=== PATIENT | female | born 1945 | race African-American/Black ===

== ENCOUNTER → 2016-04-13 | Outpatient (CLI) | payer MEDICARE, BC ==
[~2016-04-13] MED LIST: ACET1TAB30 PO; ASPI-482 PO; ATOR20TA PO; CALC500T50 PO; CHOL100013 PO; DILT360C PO; FURO-69 PO; GABA-586 PO; HYDR-2161 PO; HYDR-2666 PO; IOHEXOL 180 MG/ML 10 ML VIAL. ONE; LOSA1TAB18 PO; MELO-150 PO; MELO-156 PO; OMEG300C PO; POTA10TA PO; UBID30CA9 PO; methylPREDNISolone ACETATE 40 MG/ML VIAL. ONE; methylPREDNISolone ACETATE 80 MG/ML VIAL. ONE
--- NOTE | 2016-04-14 08:49 | PAIN ---
DATE OF SERVICE: 04/13/2016 INITIAL CONSULTATION FOR PAIN CLINIC CHIEF COMPLAINT: Low back and right lower extremity pain. HISTORY OF PRESENT ILLNESS: This is a 71-year-old female who presents with history of pain in the low back and right lower extremity for about a year or so. The patient reports the pain is getting worse, it has been present for longer than that, but much worse over the last year. The patient reports pain in the low back, right lower extremity, mostly in the posterior and lateral thigh, posterior gluteus, anterior thigh, medial and posterior lower leg with pain radiating into the foot at times, but mostly in the leg itself on the right side, some in the groin as well. The patient had been evaluated with her orthopedist as she does have some osteoarthritis in the right hip. This was investigated and had a steroid shot in the hip by her report, which did not help the pain. The patient did have an MRI scan of the lumbar spine showing multilevel lumbar spondylosis, most prominent at L5-S1 with mild diffuse disk bulge at L5-S1 with severe right and moderate left facet arthrosis, right foraminal disk protrusion effacing the exiting right L5 nerve root, resulting in severe right neural foraminal stenosis, also left foraminal disk protrusion which effaces the undersurface of the exiting left L5 nerve root ____ moderate to severe left neural foraminal compromise and stenosis. The patient reports the pain is constant, is throbbing, radiating, aching, ____ specific injury or action that she is aware, but it gradually increased over time. The patient reports it wakens her from sleep at least once or twice at night, does not affect her bowel or bladder control, but does affect her ability to walk. She is not using any assistive devices; however, but she is holding on to her or the handrails and doors and solares when she is ambulating because of the pain in the right leg. The patient reports no motor loss of the right lower extremity, but significant fatigability with even walking about 5-10 minutes. The patient rates her disability rate from 0 to 10, 10 being the worst, is at 9 with family and home responsibilities, recreation, occupation, 8 with social activities, 6 with sexual behavior, 7 with self-care and 0 with life support activities. The patient has been taking hydrocodone as well as Meloxicam, both of which helped by about 20%-25%. She also had physical therapy recently at [facility] and this helped by about 20% as well. PAST MEDICAL HISTORY: Significant for hypertension, gastroesophageal reflux, and arthritis. PREVIOUS SURGERY: Include hysterectomy, but the patient has been in good health. CURRENT MEDICATIONS: Include fish oil, vitamin D, K-Dur, Cardizem, furosemide, Lipitor, Meloxicam, gabapentin, losartan, daily baby aspirin, gabapentin and hydrocodone. ALLERGIES: THE PATIENT IS ALLERGIC TO SHRIMP AND NEOSPORIN. SOCIAL HISTORY: The patient does not drink, does not smoke. She is , lives with her spouse, is retired and lives locally in [place], [place]. FAMILY HISTORY: Significant for high blood pressure and heart disease. REVIEW OF SYSTEMS: The patient's review of systems is positive for those items mentioned in history of present illness. All systems were reviewed and otherwise negative. It is complete, full and well documented on the patient's chart. PHYSICAL EXAMINATION: VITAL SIGNS: The patient's blood pressure is 140/91, pulse 65, respirations 18, temperature 98.9 degrees Fahrenheit, height 5 feet 3 inches, and weight 198 pounds. GENERAL: The patient is awake, alert, oriented, appropriate, very pleasant demeanor. HEENT: Head shows normocephalic, atraumatic. Extraocular movements are intact and symmetrical. Oral cavity shows mucous membranes are moist and pink. Dentition is intact. NECK: Shows anterior throat supple without palpable lymphadenopathy noted. Swallow reflex is symmetrical. Neck shows full rotational motion of the cervical spine without difficulty or tenderness including extension and flexion greater than 45 degrees, right and left lateral rotation. CHEST: Shows normal on inspection. Breath sounds are clear to auscultation bilaterally. HEART: Shows S1 and S2. No murmurs are auscultated. ABDOMEN: Soft, nontender, and nondistended. No palpable organomegaly is noted. No rebound or guarding demonstrated. Abdomen is normal on inspection. BACK: Shows spine grossly midline. Normal appearing cervical lordotic curvature, thoracic kyphotic curvature, and lumbar lordotic curvature. No previous bruises, lesions, rashes or scars are noted with lumbar paraspinous musculature, on inspection shows symmetrical without evidence of atrophy or hypertrophy with palpation, it is moderately to significantly tender in the low lumbar distribution, more on the right than the left, but is symmetrical, some diffuse tenderness in the middle upper distribution of the lumbar paraspinous musculature as well again, but without atrophy or hypertrophy. No tenderness over the spinous processes themselves. No tenderness over the sacrum and sacroiliac regions. The patient shows good rotation and motion of the lumbar spine, both laterally greater than 10 degrees right and left as well as extension greater than 10 degrees, forward flexion of 45 degrees without significant pain reported. Lower extremities show deep tendon reflexes at 2+ in the patellar, 1+ tendo-calcaneus tendons are equal. Motor exam is approximately 4 on a scale of 5 with right dorsiflexion and extension and 5/5 on the left. Quadriceps and hamstring flexion is 5/5 and equal bilaterally. Peripheral pulses are 1+ posterior tibial and dorsalis pedis pulses. No peripheral edema is noted. No clubbing, no cyanosis. Lower extremities are warm and dry to touch, equal in color and appearance. Straight leg raise noted to be positive on the right at about 40-45 degrees and decreased with knee flexion, left side is negative. Gaenslen's and Gage's maneuvers are negative for reproduction of pain bilaterally as well. The patient is able to stand. It is difficult to try to stand on her toes or put off her weight on her right leg as it does hurt in the posterior gluteus and lateral thigh, and she is walking with a slight shuffling gait. It appears to favor the right lower extremity to a significant extent not using any assistive devices such as canes or walkers to ambulate. IMPRESSION: 1. This is a 71-year-old female with about 1 year history of increasing pain in low back, right lower extremity in a radicular fashion, as noted. 2. MRI scan, as noted. 3. History of hypertension. 4. Arthritis. PLAN: Options were discussed with the patient including conservative medical management, physical therapy, interventional techniques and she would like to pursue interventional techniques. We discussed lumbar epidural steroid injection using description as well as anatomical models to describe the procedure. Risks were then discussed including, but not limited to bleeding, infection, possibility of epidural hematoma, subsequent neurologic compromise, dural puncture, headaches, spinal cord and/or nerve damage, side effects of steroid medication and poor results regarding pain control. The patient understands and wishes to proceed. The patient will return to clinic in approximately 2 weeks for followup. She was counseled as to return appointment, activity level and side effects to be aware of. DIAGNOSES: Lumbar radiculopathy with lumbar degenerative disk disease and lumbar herniated disk. PROCEDURES: Lumbar epidural steroid injection, translaminar approach at the L5-S1 level using C-arm fluoroscopic-guidance under sterile prep and drape using local anesthetic. MEDICATION INJECTED: Depo-Medrol plus 120 mg plus 10 mL of preservative-free normal saline and 2 mL of Isovue for contrast. CONDITION AT DISCHARGE: Stable. The patient tolerated procedure well, had no complications. ALEKSANDRA SHARP MD DR: PAO/mustapha JOB#: [id number] / [id number] PANKAJ Torres MD
== END | disposition home or self-care (01) ==
LOC: PNCL 10:24
PROVIDERS: ATTEND Anesthesiology
DX: M51.16 Intervertebral disc disorders with radiculopathy, lumbar region (principal); I10 Essential (primary) hypertension; K21.9 Gastro-esophageal reflux disease without esophagitis; M19.90 Unspecified osteoarthritis, unspecified site
CPT/HCPCS: 62323; J1030; J1040

== ENCOUNTER → 2016-04-27 | Outpatient (CLI) | payer MEDICARE, BC ==
--- NOTE | 2016-04-28 05:47 | PAIN ---
DATE OF SERVICE: 04/27/2016 DIAGNOSES: Lumbar radiculopathy with lumbar degenerative disk disease and herniated lumbar disk. HISTORY OF PRESENT ILLNESS: The patient is a 71-year-old female who returns for followup status post lumbar epidural steroid injection x 1. The patient reports about 60% improvement after last injection with much less pain in the low back and right leg, but still some present as aching pain in the low back, much better in the lower extremity on the right side. The patient reports it is still 5-6 on a scale of 10, is worse, aching and dull, worse with standing and walking, worse with ambulating and changing positions. She is sleeping much better at night, increased her activity with greater ease and comfort without significant changes with activity. The patient reports no new motor or sensory deficits, no new bowel or bladder incontinence or other complaints. PHYSICAL EXAMINATION: VITAL SIGNS: Today, the patient's blood pressure 131/88, pulse 59, respirations 18, temperature 98.9 degrees Fahrenheit, weight is 199 pounds. GENERAL: The patient is awake, alert, oriented, appropriate, very pleasant demeanor. HEENT: Head shows normocephalic, atraumatic. Extraocular movements are intact and symmetrical. The patient wears eye glasses. Oral cavity, mucous membranes moist and pink. NECK: Shows anterior throat supple without palpable lymphadenopathy noted. Swallow reflex is symmetrical. CHEST: Shows normal on inspection. Breath sounds are clear to auscultation bilaterally. HEART: Shows S1 and S2 clear. No murmurs auscultated. ABDOMEN: Soft, nontender and nondistended. No palpable organomegaly. No rebound or guarding demonstrated. BACK: Shows spine grossly midline. Lumbar paraspinous muscle shows some mild tenderness to palpation, but is symmetrical on inspection, notes no radiation of pain with palpation. No atrophy or hypertrophy. The patient shows good rotation and motion of the lumbar spine, both laterally as well as extension and flexion. EXTREMITIES: The patient's lower extremities show deep tendon reflexes at 2+ in the patellar, 1+ tendo calcaneus tendons. Motor exam is approximately 4 on a scale of 5 with right dorsiflexion and extension about 5/5 on the left. Options were discussed with the patient at this time, the patient's old chart was reviewed as her current medication regimen updated. Current review of systems updated today as well. We will proceed with a second lumbar epidural steroid injection today with fluoroscopic guidance. Risks were again discussed including, but not limited to bleeding, infection, possibility of epidural hematoma, subsequent neurologic compromise, dural puncture, headaches, spinal cord and/or nerve damage, side effects of steroid medication and poor results regarding pain control. The patient understands and wishes to proceed. The patient will return to clinic in approximately 2 weeks for followup, was counseled on return appointment, activity level and side effects to be aware of. DIAGNOSIS: Lumbar radiculopathy with lumbar degenerative disk disease and lumbar herniated disk. PROCEDURE: Lumbar epidural steroid injection in translaminar approach at the L5-S1 level using the C-arm fluoroscopic guidance under sterile prep and drape and local anesthetic. Medications injected 120 mg Depo-Medrol plus 10 mL of preservative-free normal saline and 2 mL of Isovue for contrast. Condition at discharge is stable. The patient tolerated procedure well, had no complications. ALEKSANDRA SHARP MD DR: PAO/nts JOB#: [id number] / [id number]
== END | disposition home or self-care (01) ==
LOC: PNCL 10:32
PROVIDERS: ATTEND Anesthesiology
DX: M51.16 Intervertebral disc disorders with radiculopathy, lumbar region (principal)
CPT/HCPCS: 62323; J1030; J1040

== ENCOUNTER → 2016-06-03 | Outpatient (CLI) | payer MEDICARE, BC ==
--- NOTE | 2016-06-03 16:36 | PAIN ---
DATE OF SERVICE: 06/03/2016 DIAGNOSIS: Lumbar radiculopathy with lumbar degenerative disk disease and lumbar herniated disk. HISTORY OF PRESENT ILLNESS: The patient is a 71-year-old female who returns for followup status post lumbar epidural steroid injections x 2, last seen on 04/27/2016. Patient did very well with about 80% improvement overall. The pain is in her low back and bilateral lower extremities, right greater than left. The patient reports still pain in the back, pain in the right posterior gluteus, posterior thigh and lower leg, but much improved. The patient reports still achy alternating with a sharp pain that is becoming more constant, rates as 8 on a scale of 10, it is worse with activity, standing and walking, better with lying down or sitting, does not awaken her from sleep at night any more, getting much better with rest, has been able to increase her activity with greater ease and comfort for the most part. Patient reports no new motor or sensory deficits, no new bowel or bladder incontinence or other complaints. PHYSICAL EXAMINATION: VITAL SIGNS: Today, blood pressure is 147/91, pulse 73, respirations 20, temperature 98.9 degrees Fahrenheit. Height is 5 feet 3 inches, weight 199 pounds. GENERAL: The patient is awake, alert, oriented, appropriate, very pleasant demeanor. HEENT: Head shows normocephalic, atraumatic. Extraocular movements are intact and symmetrical. Oral cavity, mucous membranes are moist and pink. Dentition is intact. NECK: Shows anterior throat supple without palpable lymphadenopathy noted. Swallow reflex is symmetrical. CHEST: Shows normal on inspection. Breath sounds are clear to auscultation bilaterally. HEART: Shows S1 and S2 clear. No murmurs auscultated. ABDOMEN: Soft, nontender, nondistended. No palpable organomegaly noted. No rebound or guarding demonstrated. BACK: Shows spine grossly midline. Lumbar paraspinous muscle shows some mild tenderness with palpation, but only diffusely in the lower lumbar distribution, but symmetrical without evidence of atrophy, hypertrophy, no trigger points, no radiation of pain. The patient shows good rotational motion of lumbar spine, both laterally as well as extension and flexion without difficulty. EXTREMITIES: Lower extremities showed deep tendon reflexes at 2+ in the patellar tendons and 1+ tendo calcaneus tendons. Motor exam is approximately 4 on a scale of 5 with right dorsiflexion and extension and 5/5 with left. Options were discussed with the patient and the patient's old chart was reviewed as her current medication regimen updated. Current review of systems updated today as well and we will proceed with a third in a series of lumbar epidural steroid injection with fluoroscopic guidance. Risks were again discussed including, but not limited to bleeding, infection, possibility of epidural hematoma, subsequent neurological compromise, dural puncture, headaches, spinal cord and/or nerve damage, side effects of steroid medication and poor results regarding pain control. The patient understands and wishes to proceed. The patient will return to clinic in approximately 2 weeks for followup. She was counseled as to return appointment, activity level and side effects to be aware of. DIAGNOSIS: Lumbar radiculopathy with lumbar degenerative disk disease and lumbar herniated disk. PROCEDURE: Lumbar epidural steroid injection in translaminar approach at L5-S1 level using C-arm fluoroscopic guidance under sterile prep and drape using local anesthetic. MEDICATION INJECTED: Depo-Medrol 120 mg plus 10 mL preservative-free normal saline and 2 mL for Isovue contrast. CONDITION AT DISCHARGE: stable. The patient tolerated procedure well, had no complications. ALEKSANDRA SHARP MD DR: PAO/mustapha JOB#: [id number] / [id number]
== END | disposition home or self-care (01) ==
LOC: PNCL 07:54
PROVIDERS: ATTEND Anesthesiology
DX: M51.16 Intervertebral disc disorders with radiculopathy, lumbar region (principal)
CPT/HCPCS: 62323; J1030; J1040

== ENCOUNTER → 2016-10-06 | Outpatient (CLI) | payer MEDICARE, BC ==
[~2016-10-06] MED LIST changes: -CALC500T50 PO; +CALC500T54 PO; -HYDR-2666 PO; +HYDR-2758 PO; -MELO-150 PO; -MELO-156 PO; +MELO15TA23 PO; +MELO7.5T29 PO
--- NOTE | 2016-10-06 12:48 | RAD ---
Indication chronic knee pain. AP oblique and lateral views of both knees were obtained. Views of the left knee demonstrate normal bony mineralization. There is some very mild medial joint space compartment narrowing. Small osteophytes are seen medially. No acute finding is seen. Views of the right knee also suggests very slight medial joint space compartment narrowing. There is probable tendinous calcification associated with the patella. No acute finding is apparent. IMPRESSION: Slight degenerative change involving both knees
--- NOTE | 2016-10-06 23:42 | PAIN ---
DATE OF SERVICE: 10/06/2016 PROGRESS NOTE FOR PAIN CLINIC DIAGNOSES: Lumbar radiculopathy with lumbar degenerative disk disease and lumbar herniated disk. HISTORY OF PRESENT ILLNESS: The patient is a 71-year-old female who returns for followup, last seen in 05/2016. The patient underwent lumbar epidural steroid injection at that time with very good results about 60% improvement overall. The patient reports the pain is beginning to return now over the past 5-6 weeks, increasing in the low back and mostly in the right lower extremity greater than the left. The patient reports some radiating pain into the posterior gluteus, posterior thigh on the right side as well as into the groin occasionally, but mostly in the thigh and to the lower leg occasionally as well. The patient reports it is achy and dull, becoming more constant, rates at a 9 on a scale 10 at all times including on her visit today. The patient reports it awakens her from sleep. She has to reposition, take pain medication, get out of bed and then get back in bed and reposition, but sleeping about 6-7 hours at a time. The patient reports no new motor or sensory deficits, no new bowel or bladder incontinence, but it is hard to put pressure on her right leg. She is having difficulty walking and significant fatigability with the right leg as well with ambulation. PAST MEDICAL HISTORY: Significant for hypertension, arthritis, gastroesophageal reflux and previous hysterectomy. CURRENT MEDICATIONS: Updated and include hydrocodone, Lasix, calcium, coenzyme Q12, fish oil, vitamin D, daily baby aspirin, meloxicam, losartan, diltiazem and Lipitor. ALLERGIES: THE PATIENT IS ALLERGIC TO NEOSPORIN AND SEAFOOD. FAMILY HISTORY: Significant for high blood pressure and heart disease. SOCIAL HISTORY: The patient does not drink alcohol, does not use tobacco products, is , lives with her spouse, is retired and lives locally in [place], [place]. REVIEW OF SYSTEMS: The patient's review of systems is updated on the patient's chart. All systems reviewed and are negative unless otherwise noted. PHYSICAL EXAMINATION: VITAL SIGNS: Today, the patient's blood pressure is 155/105, pulse 81, respirations are 18, temperature 98.4 degrees Fahrenheit. Height is 5 feet 3 inches, weighs 195 pounds. GENERAL: The patient is awake, alert, oriented, appropriate, very pleasant demeanor. HEENT: Head shows normocephalic, atraumatic. Extraocular movements are intact, symmetrical. Oral cavity: Mucous membranes moist and pink. Dentition is intact. NECK: Shows anterior throat is supple without palpable lymphadenopathy noted. Swallow reflex is symmetrical. CHEST: Shows normal on inspection. Breath sounds are clear to auscultation bilaterally. HEART: Shows S1 and S2 clear. ABDOMEN: Soft, nontender, nondistended. No palpable organomegaly. No rebound or guarding demonstrated. BACK: Shows spine grossly in the midline. Normal appearing thoracic kyphosis and some slight flattening of lumbar lordotic curvature. Lumbar paraspinous musculature is symmetrical on inspection and on palpation shows some moderate tenderness with palpation, but only to a moderate extent in the lower lumbar distribution bilaterally without radiation. Good rotational motion both laterally as well as extension and flexion without difficulty. No tenderness over the sacrum or sacroiliac regions. EXTREMITIES: Lower extremities show deep tendon reflexes at 2+ in the patellar, 1+ in calcaneus tendons are equal. Motor exam shows approximately 4 on a scale of 5 right dorsiflexion and extension and 5/5 on the left. Quadriceps and hamstring flexion are 5/5 and equal and symmetrical. Peripheral pulses are 1+ posterior tibial and dorsalis pedis pulses. No peripheral edema is noted. Options were discussed with the patient and the patient's old chart was reviewed as her current medication regimen updated. Current review of systems updated today as noted. We will proceed with a lumbar epidural steroid injection as the first in the series with fluoroscopic guidance. Risks were again discussed including, but not limited to, bleeding, infection, possibility of epidural hematoma, subsequent neurologic compromise, dural puncture, headaches, spinal cord and/or nerve damage, side effects of steroid medication and poor results regarding pain control. The patient understands and wishes to proceed. The patient will return to the clinic in approximately 2 weeks for followup, was counseled on return appointment, activity level and side effects to be aware of. DIAGNOSIS: Lumbar radiculopathy with lumbar herniated disk and lumbar degenerative disk disease. PROCEDURE: Lumbar epidural steroid injection in translaminar approach at L5-S1 level using C-arm fluoroscopic guidance under sterile prep and drape using local anesthetic. MEDICATIONS INJECTED: A 120 mg of Depo-Medrol plus 10 mL of preservative-free normal saline and 2 mL of Isovue for contrast. CONDITION AT DISCHARGE: Stable. The patient tolerated the procedure well and had no complications. ALEKSANDRA SHARP MD DR: PAO/mustapha JOB#: [id number] / [id number]
== END | disposition home or self-care (01) ==
LOC: PNCL 11:01
PROVIDERS: ATTEND Anesthesiology
DX: M51.16 Intervertebral disc disorders with radiculopathy, lumbar region (principal); I10 Essential (primary) hypertension; M19.90 Unspecified osteoarthritis, unspecified site; K21.9 Gastro-esophageal reflux disease without esophagitis; Z79.82 Long term (current) use of aspirin; Z88.8 Allergy status to other drugs, medicaments and biological substances; Z88.1 Allergy status to other antibiotic agents; Z91.013 Allergy to seafood
CPT/HCPCS: 62323; 73562; J1030; J1040

== ENCOUNTER → 2016-10-20 | Outpatient (CLI) | payer MEDICARE, BC ==
--- NOTE | 2016-10-20 19:38 | PAIN ---
DATE OF SERVICE: 10/20/2016 DIAGNOSIS: Lumbar radiculopathy with lumbar herniated disk, lumbar degenerative disease. SUBJECTIVE: The patient is a 71-year-old female who returns for followup status post lumbar epidural steroid injections x 1. The patient reports about 80% improvement in the low back and right lower extremity pain. She was having the pain is much reduced in the legs, still some pain in the low back, right hip, occasionally radiating to the right thigh. She reports as a stabbing and dull pain. It is on and off. The patient reports at its worse is 8 on a scale of 10, least is a 6 and its average about 7 and 6 on a scale of 10 today. The patient reports that her symptoms much better with lying down. She ____ not awaking her from sleep. Reports no new motor or sensory deficits. No new bowel or bladder incontinence or other complaints. PHYSICAL EXAMINATION: VITAL SIGNS: The patient's blood pressure 138/89, pulse 77, respirations are 16, temperature is 98.5 degrees Fahrenheit, height is 5 feet 3 inches, weight is 191 pounds. GENERAL: The patient is awake, alert, oriented, appropriate, very pleasant demeanor. HEENT: Head shows normocephalic, atraumatic. Extraocular movements are intact and symmetrical. Oral cavity shows mucous membranes moist and pink. Dentition is intact. NECK: Shows anterior throat supple without palpable lymphadenopathy noted. Swallow reflex is symmetrical. CHEST: Shows normal on inspection. Breath sounds are clear to auscultation bilaterally. HEART: Shows S1 and S2, clear. ABDOMEN: Soft, nontender, nondistended. BACK: Shows spine grossly midline. The patient's lumbar paraspinous muscle shows symmetrical with inspection. On palpation, there is some mild to moderate tenderness on the lower lumbar distribution bilaterally, but symmetrical without radiation. The patient shows no tenderness over the sacrum and sacroiliac regions. EXTREMITIES: Lower extremities showed deep tendon reflexes 2+ in the patella and 1+ tendo calcaneus tendons, equal. Motor exam is strong with 5/5 dorsiflexion, extension on the left and 4/5 on the right with dorsiflexion, extension. Options were discussed with the patient and the patient's old chart was reviewed as her current medication regimen updated and current review of systems updated today as well and we will proceed with a second lumbar epidural steroid injection with fluoroscopic guidance today. Risks were again discussed including, but not limited to bleeding, infection, possibility of epidural hematoma, subsequent neurological compromise, dural puncture, headaches, spinal cord and/or nerve damage, side effects of steroid medication and poor results regarding pain control. The patient understands and wishes to proceed. The patient will return to clinic in approximately 2 weeks for followup. She was counseled as to return appointment, activity level and side effects to be aware of. DIAGNOSIS: Lumbar radiculopathy with lumbar degenerative disk disease and lumbar herniated disk. PROCEDURE: Lumbar epidural steroid injection in translaminar approach at the L5-S1 level using C-arm fluoroscopic guidance under sterile prep and drape using local anesthetic. MEDICATIONS INJECTED: Total of 120 mg Depo-Medrol plus 10 mL preservative-free normal saline and 2 mL Isovue for contrast. CONDITION AT DISCHARGE: Stable. The patient tolerated procedure well, had no complications. ALEKSANDRA SHARP MD DR: PAO/nts JOB#: [id number] / [id number]
== END | disposition home or self-care (01) ==
LOC: PNCL 10:35
PROVIDERS: ATTEND Anesthesiology
DX: M51.16 Intervertebral disc disorders with radiculopathy, lumbar region (principal); Z88.1 Allergy status to other antibiotic agents; Z91.013 Allergy to seafood; Z91.048 Other nonmedicinal substance allergy status
CPT/HCPCS: 62323; J1030; J1040

== ENCOUNTER → 2017-01-26 | Outpatient (CLI) | payer MEDICARE, BC ==
[~2017-01-26] MED LIST changes: -LOSA1TAB18 PO; +LOSA1TAB25 PO
--- NOTE | 2017-01-26 21:59 | PAIN ---
DATE OF SERVICE: 01/26/2017 PROGRESS NOTE FOR PAIN CLINIC DIAGNOSES: Lumbar radiculopathy with lumbar degenerative disk disease with lumbar herniated disk. HISTORY OF PRESENT ILLNESS: The patient is a 71-year-old female, who returns for followup status post lumbar epidural steroid injection x 2. Last seen on 10/20/2016, the patient did very well, about 85% improvement in the low back and right lower extremity pain. The patient reports the pain has been returning now over the past 2-3 weeks in the low back region, the posterior gluteus, posterior thighs, posterior lateral thigh, posterior calf and lateral calf on the right side only. The patient reports it as a 9 on a scale of 10 at its worst, 9 on average and 7 at its least and is a 9 today. The patient reports it wakes her from sleep about every 2 hours if she is lying on her right side especially. She can reposition or take pain medication, get out of bed, reposition, and usually be able to get back to sleep. The patient reports, the pain is becoming more severe, sharp, shooting also a dull aching pain in the low back, cramping and becoming more unbearable. PHYSICAL EXAMINATION: VITAL SIGNS: The patient's blood pressure 190/112, pulse 80, respirations 18, temperature 98.7 degrees Fahrenheit. Height is 5 feet 3 inches, weight is 191 pounds. GENERAL: The patient is awake, alert, oriented, appropriate, very pleasant demeanor. HEENT: Head shows normocephalic, atraumatic. Extraocular movements are intact, symmetrical. Oral cavity shows mucous membranes moist and pink. Dentition is intact. NECK: Shows anterior throat supple without palpable lymphadenopathy noted. Swallow reflex symmetrical. CHEST: Shows normal with inspection. Breath sounds are clear to auscultation bilaterally. HEART: Shows S1, S2 clear. No murmurs auscultated. ABDOMEN: Soft, nontender, nondistended. No palpable organomegaly is noted. No rebound or guarding demonstrated. BACK: Shows spine grossly in the midline, normal-appearing lumbar lordotic curvature as well as thoracic kyphotic curvature. The patient's lumbar paraspinous muscle shows some moderate tenderness with palpation bilaterally only diffusely; however, without significant radiation, no trigger points, no atrophy, hypertrophy, no asymmetry. EXTREMITIES: The patient's lower extremities show deep tendon reflexes at 2+ in the patellar and 1+ in tendo calcaneus tendons are equal. Motor exam is strong with approximately 5/5 on the left and 4/5 on the right with dorsiflexion and extension. Peripheral pulses are 1+ posterior tibial. No peripheral edema is noted bilaterally. Options were discussed with the patient. The patient's old chart was reviewed as her current medication regimen updated. Current review of systems is updated today as well and we will proceed with the third in this series of lumbar epidural steroid injection. Risks were again discussed including, but not limited to bleeding, infection, possibility of epidural hematoma, subsequent neurologic compromise, dural puncture, headaches, spinal cord and/or nerve damage, side effects of steroid medication and poor results regarding pain control. The patient understands and wished to proceed. The patient will return to clinic in approximately 2 weeks for followup. She was counseled to return appointment, activity level and side effects to be aware of. DIAGNOSES: Lumbar radiculopathy with lumbar degenerative disk disease, lumbar herniated disk. PROCEDURES: Lumbar epidural steroid injection, translaminar approach at the L5-S1 level using C-arm fluoroscopic guidance under sterile prep and drape using local anesthetic. MEDICATION INJECTED: A total of 120 mg Depo-Medrol plus 10 mL preservative-free normal saline and 2 mL of Isovue for contrast. CONDITION AT DISCHARGE: Stable. The patient tolerated the procedure well, had no complications. ALEKSANDRA SHARP MD DR: PAO/mustapha JOB#: [id number] / [id number]
== END ==
LOC: PNCL 09:34
PROVIDERS: ATTEND Anesthesiology
DX: M51.16 Intervertebral disc disorders with radiculopathy, lumbar region (principal)
CPT/HCPCS: 62323; J1030; J1040

== ENCOUNTER → 2017-05-04 | Outpatient (CLI) | payer MEDICARE, BC ==
[~2017-05-04] MED LIST changes: -ACET1TAB30 PO; -ASPI-482 PO; -ATOR20TA PO; -CALC500T54 PO; -CHOL100013 PO; -DILT360C PO; -FURO-69 PO; -GABA-586 PO; -HYDR-2161 PO; -HYDR-2758 PO; +IOHEXOL 180 MG/ML 10 ML VIAL.; -IOHEXOL 180 MG/ML 10 ML VIAL. ONE; -LOSA1TAB25 PO; -MELO15TA23 PO; -MELO7.5T29 PO; -OMEG300C PO; -POTA10TA PO; -UBID30CA9 PO; +methylPREDNISolone ACETATE 40 MG/ML VIAL.; -methylPREDNISolone ACETATE 40 MG/ML VIAL. ONE; +methylPREDNISolone ACETATE 80 MG/ML VIAL.; -methylPREDNISolone ACETATE 80 MG/ML VIAL. ONE
== END ==
LOC: PNCL 13:02
DX: M51.16 Intervertebral disc disorders with radiculopathy, lumbar region (principal); Z88.1 Allergy status to other antibiotic agents; Z88.8 Allergy status to other drugs, medicaments and biological substances; Z91.013 Allergy to seafood
CPT/HCPCS: 62323; J1030; J1040; Q9965

== ENCOUNTER → 2017-05-25 | Outpatient (CLI) | payer MEDICARE, BC | LOC: PNCL 11:19 | DX: M51.16 Intervertebral disc disorders with radiculopathy, lumbar region (principal) | CPT/HCPCS: 62323; J1030; J1040; Q9965 ==

== ENCOUNTER → 2017-08-25 | Outpatient (CLI) | payer MEDICARE, BC ==
[~2017-08-25] MED LIST changes: +LIDOCAINE 1% PF 2 ML VIAL.
== END ==
LOC: PNCL 10:57
DX: M51.16 Intervertebral disc disorders with radiculopathy, lumbar region (principal); Z79.82 Long term (current) use of aspirin; Z88.8 Allergy status to other drugs, medicaments and biological substances; Z88.1 Allergy status to other antibiotic agents; Z91.013 Allergy to seafood
CPT/HCPCS: 62323; J1030; J1040; Q9965